=== PATIENT | female | born 1950 | race Caucasian/White ===

== ENCOUNTER 2017-12-01 16:38 | Emergency (ER) | payer OTHER ==
[2017-12-01] MEDS ORDERED: Tetracaine 0.5% Ophth 2 ML BOTTLE OS ONE (17:31)
[2017-12-01] MEDS ORDERED: Fluorescein 1 mg Ophthalmic Strip OS ONE (17:31)
--- NOTE | 2017-12-01 17:34 | C.PDOC ---
History Of Present Illness Patient with PMHx of Glaucoma reports pain and redness to the left eye which is associated with itchiness. The patient reports that she takes her eye drops, Alphagar and Latanoprost everyday without fail. Denies trauma, fever, change in vision. Time Seen by Provider: 12/01/17 16:51 Chief Complaint (Nursing): Eye Problem Past Medical History Vital Signs: Last Vital Signs Temp 98 F 12/01/17 16:43 Pulse 65 12/01/17 16:43 Resp 16 12/01/17 16:43 BP 171/98 H 12/01/17 16:43 Pulse Ox 98 12/01/17 17:34 - Medical History PMH: Arthritis, Asthma, HTN, Osteoporosis Denies: Chronic Kidney Disease Family History: States: Unknown Family Hx - Social History Hx Alcohol Use: No Hx Substance Use: No ED Course And Treatment O2 Sat by Pulse Oximetry: 98 Medical Decision Making Medical Decision Making: IOP of the right eye is 18 and the IOP of the left eye is 19. The patient was instructed to follow up with the Industrial Sociologist within 24-48 hours without fail. Return if worsened. On re-exam, the patient eports improvement of symptoms. Lungs are CTA, heart is RRR, abdomen is soft, non-tender and tolerating PO well. Follow up with the medical doctor within 1-2 days without fail. Return if worsened. Disposition - Disposition Referrals: Nelia Winslow MD [Medical Doctor] - Disposition: HOME/ ROUTINE Disposition Time: 18:23 Additional Instructions: The pressure in the left eye is 19. Pressure in the right eye is 18. The patient was instructed to follow up with the Industrial Sociologist within 24-48 hours without fail. Return if worsened. Prescriptions: Tobramycin 0.3% [Tobramycin 5 Ml] 1 drop OU TID #1 bottle Instructions: Corneal Abrasion Forms: [employer] ([place]) Print Language: BULGARIAN - Clinical Impression Clinical Impression: Corneal abrasion
[2017-12-01] MEDS ORDERED: Fluorescein 1 mg Ophthalmic Strip ONE (17:42)
[2017-12-01] MEDS ORDERED: Tetracaine 0.5% Ophth (OR ONLY) ONE (17:42)
[2017-12-01] MEDS ORDERED: Erythromycin 0.5% Ophth Oint 1 APPLIC/3.5 G OS STA (18:27)
[2017-12-01] MEDS ORDERED: Erythromycin 0.5% Ophth Oint 1 APPLIC/3.5 G ONE (18:37)
[2017-12-01 18:41] VITALS: BP 117/76; PULSE 60; RESP 18; TEMP 97.8; O2SAT 100
== END 2017-12-01 18:40 | disposition home or self-care (01) ==
LOC: C.ER 16:38
DX: S05.02XA Injury of conjunctiva and corneal abrasion without foreign body, left eye, initial encounter (principal); X58.XXXA Exposure to other specified factors, initial encounter; I10 Essential (primary) hypertension

== ENCOUNTER 2018-07-01 15:15 | Emergency (ER) | payer OTHER ==
[2018-07-01 16:05] VITALS: BP 139/75; PULSE 78; RESP 18; TEMP 98.7; O2SAT 97
--- NOTE | 2018-07-01 16:18 | C.PDOC ---
History Of Present Illness Patient is a 67 year old female who presents to the ED for evaluation of left shoulder and trapezius pain that has been present for the past 3 days. Patient states that the pain worsens with heating therapy. She denies any abdominal pain, nausea, vomiting, fever, SOB, CP, heavy lifting, or falls. She has not taken Motrin due to an allergy to this medication. Patient's family was irrational at bedside and demanded an MRI be performed. When outpatient treatment was discussed the family was argumentative and condescending. <Eloy Colbert - Last Filed: 07/01/18 17:43> <Mukund Mathews - Last Filed: 07/01/18 16:18> History Per: Patient History/Exam Limitations: no limitations Onset/Duration Of Symptoms: Days (3 days ) Current Symptoms Are (Timing): Still Present Quality: "Pain" Recent travel outside of the [place]: No Additional History Per: Patient <Eloy Colbert - Last Filed: 07/01/18 17:43> Time Seen by Provider: 07/01/18 16:17 Chief Complaint (Nursing): Upper Extremity Problem/Injury Past Medical History Vital Signs: Last Vital Signs Temp 98.7 F 07/01/18 16:01 Pulse 78 07/01/18 16:01 Resp 18 07/01/18 16:01 BP 139/75 07/01/18 16:01 Pulse Ox 97 07/01/18 16:01 - Medical History PMH: Arthritis, Asthma, Atrial Fibrillation, HTN, Osteoporosis Denies: Chronic Kidney Disease Family History: States: Unknown Family Hx - Social History Hx Alcohol Use: No Hx Substance Use: No - Immunization History Hx Tetanus Toxoid Vaccination: Yes Hx Influenza Vaccination: No Hx Pneumococcal Vaccination: Yes <Mukund Mathews - Last Filed: 07/01/18 16:18> Vital Signs: Last Vital Signs Temp 98.7 F 07/01/18 16:01 Pulse 78 07/01/18 16:01 Resp 18 07/01/18 16:01 BP 139/75 07/01/18 16:01 Pulse Ox 97 07/01/18 16:18 Surgical History: No Surg Hx <Eloy Colbert - Last Filed: 07/01/18 17:43> Review Of Systems Constitutional: Negative for: Fever, Chills Cardiovascular: Negative for: Chest Pain Respiratory: Negative for: Shortness of Breath Gastrointestinal: Negative for: Nausea, Abdominal Pain Musculoskeletal: Positive for: Shoulder Pain (left shoulder and trapezius ) <Eloy Colbert Tania Last Filed: 07/01/18 17:43> Physical Exam - Physical Exam Appears: Non-toxic, No Acute Distress, Other (morbidly obese) Skin: Normal Color, Warm, Dry Head: Atraumatic, Normacephalic Eye(s): bilateral: Normal Inspection, PERRL, EOMI Oral Mucosa: Moist Neck: Supple Chest: Symmetrical Cardiovascular: Rhythm Regular Respiratory: Normal Breath Sounds, No Rales, No Rhonchi, No Stridor Gastrointestinal/Abdominal: Soft Extremity: Tenderness (stress to left trapeizus and deltoid area ), Pedal Edema, Swelling, Other (Positive painful ROM of left shoulder. No rash or edema of left shoulder. ) Neurological/Psych: Oriented x3, Normal Speech, Normal Cognition Gait: Steady <Eloy Colbert Tania Last Filed: 07/01/18 17:43> ED Course And Treatment O2 Sat by Pulse Oximetry: 97 <Mukund Mathews - Last Filed: 07/01/18 16:18> O2 Sat by Pulse Oximetry: 97 (on RA) Pulse Ox Interpretation: Normal <Eloy Colbert Tania Last Filed: 07/01/18 17:43> Medical Decision Making Medical Decision Making: soft tissue tender L deltoid/trapezius area no joint involvement no distal L arm edema worse with heat therapy @ home. ice/NSAIDS educated- allergic to Motrin (rash with Motrin), Tylenol offered <Eloy Colbert Tania Last Filed: 07/01/18 17:43> Disposition <Mukund Mathews - Last Filed: 07/01/18 16:18> Doctor Will See Patient In The: Office Counseled Patient/Family Regarding: Studies Performed, Diagnosis - Disposition Disposition Time: 16:28 <Eloy Colebrt Last Filed: 07/01/18 17:43> - Disposition Referrals: Barbara Galvan MD [Staff Provider] - Disposition: HOME/ ROUTINE Condition: GOOD Additional Instructions: ice packs 1/2 hour per hour, nothing hot no hot showers, no heating pads ice packs 1/2 hour per hour Tylenol 1000 mg every 6 hours as needed follow-up with Dr. Galvan to consider referral for MRI of L shoulder area as indicated. Instructions: Muscle Strain (DC) Forms: [facility] ([place]) - Clinical Impression Clinical Impression: Contusion, Muscle strain of left shoulder - Scribe Statement The provider has reviewed the documentation as recorded by the Scribe Provider Attestation: Jovita Dumont All medical record entries made by the Scribe were at my direction and personally dictated by me. I have reviewed the chart and agree that the record accurately reflects my personal performance of the history, physical exam, medical decision making, and the department course for this patient. I have also personally directed, reviewed, and agree with the discharge instructions and disposition. <Eloy Colbert E - Last Filed: 07/01/18 17:43>
== END 2018-07-01 16:37 | disposition home or self-care (01) ==
LOC: C.ER 15:15
DX: S40.012A Contusion of left shoulder, initial encounter (principal); S46.912A Strain of unspecified muscle, fascia and tendon at shoulder and upper arm level, left arm, initial encounter; X58.XXXA Exposure to other specified factors, initial encounter; I10 Essential (primary) hypertension; I48.91 Unspecified atrial fibrillation; M81.0 Age-related osteoporosis without current pathological fracture